=== PATIENT | female | born 1945 | race Caucasian/White ===

== ENCOUNTER → 2020-10-13 | Outpatient (CLI) | payer MEDICARE ==
[~2020-10-13] MED LIST: COREG 3.125M3.125 MG PO; CYCLOBENZAPRINE5 MG PO; FLONASE 0.05% N16 GM; IPRAT-ALBUT 0.5-3 ML NEB; ISOSORBIDE MONO60 MG PO; LASIX TAB 20 MG20 MG PO; LEXAPRO20 MG PO; MEDROL4 MG PO; MIRALAX17 GM PO; NEURONTIN 100100 MG PO; PLAVIX 75 MG TA75 MG PO; PROTONIX40 MG PO; RANEXA500 MG PO; SULFAMETHOXAZO1 EACH PO; SYNTHROID25 MCG PO
== END ==
LOC: HEART 5 15:23
DX: J44.9 Chronic obstructive pulmonary disease, unspecified (principal); R94.2 Abnormal results of pulmonary function studies; F17.210 Nicotine dependence, cigarettes, uncomplicated
CPT/HCPCS: 94060; 94729

== ENCOUNTER 2021-04-23 12:21 | Inpatient (IN) | payer MEDICARE ==
[~2021-04-23] VITALS: Ht 154.9 cm; Wt 63.5 kg
[~2021-04-23 12:21] MED LIST changes: -NEURONTIN 100100 MG PO; +NEURONTIN300 MG PO; +PROMETHAZINE HC25 M1 PO; +RANEXA1000 MG PO; -RANEXA500 MG PO; -SYNTHROID25 MCG PO; +SYNTHROID50 MCG PO
[2021-04-23 18:01] LABS: MONONUCLEAR CELLS 55 (75-100); POLYMORPHONUCLEAR % 45 (0-25); RBC (AUTOMATED) 7500 (0-100000); WBC (AUTOMATED) 464 (0-500)
[2021-04-23] MEDS ORDERED: FAMOTIDINE20 MG PO (18:08)
[2021-04-23] MEDS ORDERED: HYDROCODON-ACE1 EAC6 PO (18:09)
[2021-04-23] MEDS ORDERED: METFORMIN HCL500 MG PO (18:10)
[2021-04-23] MEDS ORDERED: METOPROLOL TART25 MG PO (18:10)
[2021-04-23] MEDS ORDERED: OMEPRAZOLE20 MG PO (18:12)
[2021-04-23] MEDS ORDERED: TIZANIDINE HCL4 MG PO (18:13)
[2021-04-23] MEDS ORDERED: WIXELA 500-501 EACH PO (18:19)
[2021-04-23 20:50] LABS: HEMOGLOBIN 11.6 gm/dl (12.3-15.3); RED BLOOD COUNT 4.02 M/UL (4.00-5.10)
[2021-04-23 21:00] LABS: WHITE BLOOD COUNT 36.1 K/UL (4.5-11.0)
[2021-04-23 21:24] LABS: BUN/CREATININE RATIO 22 (0-10)
[2021-04-23 22:46] LABS: LDH, BODY FLUID 217 U/L; TOTAL PROTEIN, BODY FLUID 2.7 gm/dL
[2021-04-24 08:46] LABS: HEMOGLOBIN 11.1 gm/dl (12.3-15.3); RED BLOOD COUNT 4.06 M/UL (4.00-5.10)
[2021-04-24 08:50] LABS: WHITE BLOOD COUNT 33.2 K/UL (4.5-11.0)
[2021-04-24 09:12] LABS: BUN/CREATININE RATIO 40 (0-10)
[2021-04-24] MEDS ORDERED: PROTONIX 40 MG40 M1 PO (10:10)
[2021-04-25 05:19] LABS: HEMOGLOBIN 10.9 gm/dl (12.3-15.3); RED BLOOD COUNT 3.89 M/UL (4.00-5.10); WHITE BLOOD COUNT 29.1 K/UL (4.5-11.0)
[2021-04-26 09:33] LABS: HEMOGLOBIN 10.8 gm/dl (12.3-15.3); RED BLOOD COUNT 3.79 M/UL (4.00-5.10)
[2021-04-26 09:35] LABS: WHITE BLOOD COUNT 30.7 K/UL (4.5-11.0)
[2021-04-26 10:00] LABS: BUN/CREATININE RATIO 27 (0-10)
--- NOTE | 2021-04-28 15:53 | NUR ---
PT TRIED TO PULL OFF A BANDAGE FROM AN EARLIER BLOOD DRAW AND TORE HER SKIN. tHIS IS LOCATED ON THE LEFT HAND. NURSE AND TECH WITNESSED AND STERI STRIPS WERE APPLIED TO THE HAND.
--- NOTE | 2021-04-29 19:19 | NUR ---
patient prounced passed by two rns myself and Cece at 1847. patient was without pulse for 3 minutes and respirations. daughter was notified at 1855 and gave verbal permission over the [place] that she would not be able to come to the hospital and requested that the body be released to [facility]. Agustin was contacted at 1900 spoke with vince anderson and given permission to release. . hospitalist contacted jama and home contacted of family choice. daughter dakotah cardenas called [phone].
--- NOTE | 2021-04-29 21:35 | NUR ---
patient leaves the floor at 2100 with aladdin and [facility] staff
== END 2021-04-29 18:37 | disposition expired | DRG 871 ==
LOC: CCU 15:20 → MED SURG 4 15:20 → CCU 15:21 → MED SURG 4 04-26 18:09
PROVIDERS: Internal Medicine Pulmonary Disease; ADMIT Internal Medicine
PROC: B24BZZ4 Ultrasonography of Heart with Aorta, Transesophageal (ICD-10-PCS; principal; 2021-04-23)
PROC: 0W9B3ZZ Drainage of Left Pleural Cavity, Percutaneous Approach (ICD-10-PCS; 2021-04-23)
PROC: BB4BZZZ Ultrasonography of Pleura (ICD-10-PCS; 2021-04-23)
PROC: 3E033XZ Introduction of Vasopressor into Peripheral Vein, Percutaneous Approach (ICD-10-PCS; 2021-04-23)
PROC: 0B9J8ZX Drainage of Left Lower Lung Lobe, Via Natural or Artificial Opening Endoscopic, Diagnostic (ICD-10-PCS; 2021-04-24)
PROC: 0B978ZX Drainage of Left Main Bronchus, Via Natural or Artificial Opening Endoscopic, Diagnostic (ICD-10-PCS; 2021-04-24)
DX: A41.9 Sepsis, unspecified organism (principal); J18.9 Pneumonia, unspecified organism; R65.21 Severe sepsis with septic shock; J96.21 Acute and chronic respiratory failure with hypoxia; I50.21 Acute systolic (congestive) heart failure; G93.41 Metabolic encephalopathy; J44.0 Chronic obstructive pulmonary disease with (acute) lower respiratory infection; J44.1 Chronic obstructive pulmonary disease with (acute) exacerbation; J90 Pleural effusion, not elsewhere classified; R04.2 Hemoptysis; D62 Acute posthemorrhagic anemia; N17.9 Acute kidney failure, unspecified; I13.0 Hypertensive heart and chronic kidney disease with heart failure and stage 1 through stage 4 chronic kidney disease, or unspecified chronic kidney disease; I48.20 Chronic atrial fibrillation, unspecified; Z20.822 Contact with and (suspected) exposure to COVID-19; Z51.5 Encounter for palliative care; Z66 Do not resuscitate; I46.2 Cardiac arrest due to underlying cardiac condition; I48.0 Paroxysmal atrial fibrillation; E78.5 Hyperlipidemia, unspecified; N18.30 Chronic kidney disease, stage 3 unspecified; E03.9 Hypothyroidism, unspecified; M19.90 Unspecified osteoarthritis, unspecified site; F41.1 Generalized anxiety disorder; G62.9 Polyneuropathy, unspecified; K21.9 Gastro-esophageal reflux disease without esophagitis; G89.4 Chronic pain syndrome; R59.9 Enlarged lymph nodes, unspecified; I25.5 Ischemic cardiomyopathy; H40.9 Unspecified glaucoma; D25.0 Submucous leiomyoma of uterus; D63.1 Anemia in chronic kidney disease; I08.1 Rheumatic disorders of both mitral and tricuspid valves; I25.10 Atherosclerotic heart disease of native coronary artery without angina pectoris; Z79.01 Long term (current) use of anticoagulants; Z95.5 Presence of coronary angioplasty implant and graft; Z99.81 Dependence on supplemental oxygen; I25.2 Old myocardial infarction; Z98.42 Cataract extraction status, left eye; Z98.41 Cataract extraction status, right eye; Z95.810 Presence of automatic (implantable) cardiac defibrillator
CPT/HCPCS: ECHO; 36415; 36600; 71045; 80053; 80162; 80202; 81001; 82550; 82553; 82803; 82945; 83605; 83615; 83735; 83880; 84100; 84157; 84484; 85025; 87040; 87070; 87205; 89051; 93005; 93306; 94640; 94664; 94760; C1729; J0171; J0282; J0692; J1160; J2270; J2370; J2704; J3370; J3475; J7030; J7050; J7070; J7120; P9047; U0002